=== PATIENT | male | born 1955 | race Two or more races ===

== ENCOUNTER 2019-12-02 07:54 | Outpatient (CLI) | payer OTHER | END 2019-12-02 08:05 | disposition home or self-care (01) | LOC: NUCLEAR 07:54 | DX: G31.89 Other specified degenerative diseases of nervous system (principal); R94.01 Abnormal electroencephalogram [EEG]; G30.1 Alzheimer's disease with late onset; F02.80 Dementia in other diseases classified elsewhere, unspecified severity, without behavioral disturbance, psychotic disturbance, mood disturbance, and anxiety | CPT/HCPCS: 78814; A9552 ==